=== PATIENT | female | born 1945 | race Caucasian/White ===

== ENCOUNTER 2023-06-15 17:01 | Emergency (ER) | payer MEDICARE, OTHER ==
[~2023-06-15] VITALS: Ht 167.6 cm; Wt 44.0 kg
[2023-06-15 18:15] LABS: BILIRUBIN,URINE SMALL (Neg); CLARITY,URINE SLIGHTLY CLOUDY (Clear); COLOR,URINE YELLOW (Yellow); GLUCOSE, URINE NEGATIVE (Neg); KETONES,URINE 40 mg/dl (Neg); LEUKOCYTE ESTERASE ,URINE NEGATIVE (Neg); NITRITES, URINE NEGATIVE (Neg); OCCULT BLOOD,URINE TRACE-INTACT (Neg); PROTEIN,URINE NEGATIVE (Neg); UROBILINOGEN,URINE 0.2 E.U/dL (0.2-1.0)
[2023-06-15 18:35] LABS: UA COLLECTION TYPE CLN CATCH MIDSTREAM
[2023-06-15 18:37] LABS: SQUAMOUS EPITHELIAL CELL,UR MANY /LPF (FEW)
[2023-06-15 18:38] LABS: ALANINE AMINOTRANSFERASE 19 U/L (12-78); ALBUMIN 4.1 G/DL (3.4-5.0); ALBUMIN/GLOBULIN RATIO 1.2 (1.1-1.5); ALKALINE PHOSPHATASE 84 IU/L (46-116); ANION GAP 10 (8-16); ASPARTATE AMINO TRANSFERASE 14 U/L (10-37); BASOPHILS # (AUTO) 0.1 X10'3 (0-0.2); BASOPHILS % (AUTO) 0.5 % (0-1); BILIRUBIN,TOTAL 0.9 MG/DL (0.1-1.0); BLOOD UREA NITROGEN 17 MG/DL (7-18); BUN/CREATININE RATIO 17.3 (10.0-20.0); CALCIUM 11.8 MG/DL (8.5-10.1); CHLORIDE 99 MMOL/L (99-107); CREATININE 0.98 MG/DL (0.40-0.90); EOSINOPHILS % (AUTO) 0.2 % (0-6); GLUCOSE 150 MG/DL (70-104); HEMATOCRIT 45.7 % (35.0-45.0); HEMOGLOBIN 15.2 g/dl (12.0-16.0); LIPASE 58 U/L (16-77); LYMPHOCYTES # (AUTO) 1.4 X10'3 (1.1-4.8); MEAN CORPUSCULAR HEMOGLOBIN 31.3 PG (27.0-31.0); MEAN CORPUSCULAR HGB CONC 33.3 g/dL (33.0-36.5); MEAN PLATELET VOLUME 10.4 FL (7.4-10.4); MONOCYTES # (AUTO) 0.7 X10'3 (0-0.9); MONOCYTES % (AUTO) 6.4 % (2-12); NEUTROPHILS # (AUTO) 8.1 X10'3 (1.8-7.7); NEUTROPHILS % (AUTO) 78.9 % (42-75); PLATELET COUNT 327 X10'3 (140-440); POTASSIUM 4.1 MMOL/L (3.5-5.1); RED BLOOD COUNT 4.87 X10'6 (4.20-5.60); RED CELL DISTRIBUTION WIDTH 13.5 % (11.5-14.5); SODIUM 136 MMOL/L (135-145); TOTAL CARBON DIOXIDE 26.8 MMOL/L (24-32); TOTAL PROTEIN 7.6 G/DL (6.4-8.2); WHITE BLOOD COUNT 10.3 X10'3 (4.5-11.0); eCRCL 33 ML/MIN; eGFR 55 ML/MIN
[2023-06-15 18:40] LABS: WAXY CASTS,URINE 0-3 /LPF (NEGATIVE)
[2023-06-15 18:42] LABS: BACTERIA,URINE 2+ /HPF (Neg); RBC,URINE 0-2 /HPF (0-2)
[2023-06-15 19:11] VITALS: TEMP 97.9
[2023-06-15] MEDS ORDERED: iohexol 300mg/ml 100ml inj. ONE (20:30)
[2023-06-15 20:43] LABS: APTT 23 SECONDS (22-32); PROTHROMBIN TIME 10.3 SECONDS (9.0-12.0)
[2023-06-15 20:46] LABS: MAGNESIUM 2.2 MG/DL (1.5-2.4)
[2023-06-15 22:05] VITALS: BP 151/84; PULSE 93
[2023-06-15] MEDS ORDERED: DOCU-148 PO (22:21)
[2023-06-15] MEDS ORDERED: MAG355OR18 PO (22:21)
[2023-06-15 22:54] VITALS: RESP 18; O2SAT 97
== END 2023-06-15 22:40 | disposition home or self-care (01) ==
LOC: ER 17:03
DX: K59.00 Constipation, unspecified (principal); R10.13 Epigastric pain; Z79.899 Other long term (current) drug therapy
CPT/HCPCS: 36415; 74177; 80053; 81001; 83690; 83735; 85025; 85610; 85730; 99285; J3490; Q9967; A6449